=== PATIENT | female | born 1945 | race Caucasian/White ===

== ENCOUNTER → 2018-10-26 | Outpatient (CLI) | payer MEDICARE, OTHER ==
--- NOTE | 2018-10-26 16:20 | CONS ---
Date/Time of Note Date/Time of Note DATE: 10/26/18 TIME: 16:17 Assessment/Plan Assessment/Plan Hospital Course This is a 72-year-old female with 2 weeks of right knee pain with right medial meniscus tear that likely is acute on chronic. She also has degenerative changes of her knee. I offered her a steroid injection today. However she deferred. She had a steroid injection in her other knee many years ago which did not help and she does not wish to try that again. Therefore encouraged activity modification with low impact activities, use of a cane, continue Aleve, prescribed diclofenac gel, weight loss, and physical therapy. Patient to follow-up as needed Consultation Date/Type/Reason Admit Date/Time Date of Consultation: Oct 26, 2018 Reason for Consultation Left knee pain Hx of Present Illness Is a 72-year-old female with a chief complaint of left knee pain. The pain began approximately 2 weeks ago when she stepped wrong and felt and heard a pop. She thinks she had some swelling at that time. The patients pain is in the medial aspect of the left knee. Pain is not radiating to the lower leg. The pain is rated as a 8/10 and it is described as sharp, throbbing, burning. Patient denies complaints of numbness or tingling. The pain is exacerbated by climbing stairs and ambulation. Pain is not relieved by NSAID's. Patient has been taking Aleve on a p.r.n. basis as well as using ice. Does complain of mechanical symptoms Duration: 2 weeks Injury: Yes. Patient stepped wrong Walking tolerance: Not many Limp: Yes Support: No Swelling: Yes Crepitation: Yes Instability: [] Stairs: Places both feet before proceeding to the next Physical Therapy: no Injections: No NSAIDs: Aleve Prior surgery: No Back pain: Yes Hip pain: No Risk of AVN : No Patient denies fever, chills, shortness of breath, chest pain, nausea/vomiting, constipation, diarrhea, numbness, and tingling. Past Medical History DVT Hypertension Past Surgical History Cholecystectomy Family History Significant Family History: no pertinent family hx Social History Alcohol Use: none Smoking Status: Never smoker Drug Use: none Exam/Review of Systems Vital Signs Vitals weight: 200 pounds Height: 5 foot Temperature: 98.3 Heart Rate: 59 Blood Pressure: 115/57 Respiratory Rate: 14 Exam General: Alert, oriented x3. No Acute Distress. Heart: Regular rate and rhythm. Lungs: No respiratory distress. No accessory muscle use. Musculoskeletal: Left Knee This is a well developed obese female who is alert, oriented times three and in no apparent distress. Skin is intact over the left knee as well as the lower extremity with no abrasions, lacerations, or ulcerations. Observation of the patient's gait reveals an antalgic gait with No thrust. Frontal plane alignment is slight varus. There is pain on palpation of medial joint line. The patient demonstrates grinding anteriorly with ROM. Range of motion: 0 extension to approximately 110 degrees of flexion. Collateral ligament testing reveals no instability with varus or valgus stress at 0 and 30 degrees of flexion. Negative Lynn's and negative posterior drawer. Neurovascularly intact with 5/5 EHL/tibialis anterior/gastroc. Sensation intact to light touch in a sural, saphenous, deep peroneal, superficial peroneal, medial and lateral plantar nerve distribution. Palpable, symmetric dorsalis pedis and posterior tibial pulses in both lower extremities. Hip examination normal. Imaging Imaging The patient received a standard set of films today that were personally reviewed . Imaging included a standing bilateral knee AP, PA flexion, merchant views and a dedicated lateral of the affected knee: There is varus alignment of the knee. There is mildmoderate loss of joint space medial compartment(s). There is osteophyte formation. There is subchondral sclerosis. There are no subchondral cysts. Degenerative changes are most severe in the medial compartm ent(s) MRI of the left knee from outside facility. Imaging was personally reviewed There is a tear of the posterior horn of the medial meniscus. There is a displaced fragment. There is some tricompartmental degenerative changes most significant on the lateral plateau. Chronic sprain of the MCL otherwise other ligaments are intact. IDANIA COTTRELL MD Oct 26, 2018 16:20
--- NOTE | 2018-10-27 09:20 | RADRPT ---
PROCEDURE: XR knee bilateral CLINICAL INDICATION: knee pain. TECHNIQUE: 4 weightbearing views of the bilateral knee were obtained. COMPARISON: None. FINDINGS: Right knee: There is no acute fracture or dislocation. Osseous structures are intact. There are mild to moderate osteoarthritic changes of the knee, most notable at the medial tibiofemoral compartment. There is no large knee joint effusion. Left knee: There is no acute fracture or dislocation. Osseous structures are intact. There are mild osteoarthritic changes of the knee, most notable at the medial tibiofemoral compartment. There is no large knee joint effusion. IMPRESSION: 1. [id number] right knee osteoarthritis, most notable at the medial tibiofemoral compartment. 2. Mild left knee osteoarthritis, most notable at the medial tibiofemoral compartment. RPTAT: DD Physician Meche Date Time Electronically viewed and signed by Physician Meche on 10/27/2018 09:20 /
== END | disposition home or self-care (01) ==
LOC: HKI 13:18
PROVIDERS: ATTEND Orthopaedic Surgery Adult Reconstructive Orthopaedic Surgery
DX: M25.562 Pain in left knee (principal); I10 Essential (primary) hypertension; Z86.718 Personal history of other venous thrombosis and embolism; E66.9 Obesity, unspecified
CPT/HCPCS: 73564; G0463